=== PATIENT | female | born 1960 | race Native Hawaiian/Other Pacific Islander ===

== ENCOUNTER 2020-09-05 17:40 | Emergency (ER) | payer OTHER ==
[~2020-09-05] VITALS: Ht 172.7 cm; Wt 160.9 kg
[2020-09-05 17:49] VITALS: TEMP 98.1
[2020-09-05] MEDS ORDERED: NORCO 325 MG-51 TAB PO ×2 (18:45)
[2020-09-05 18:50] VITALS: BP 126/78; PULSE 80
== END 2020-09-05 18:55 | disposition home or self-care (01) ==
LOC: COL.ER 17:40
DX: M25.571 Pain in right ankle and joints of right foot (principal); M25.511 Pain in right shoulder; R74.8 Abnormal levels of other serum enzymes; R79.89 Other specified abnormal findings of blood chemistry; E66.9 Obesity, unspecified; W19.XXXA Unspecified fall, initial encounter

== ENCOUNTER → 2020-09-14 | Outpatient (REF) ==
[~2020-09-14] MED LIST: ASPIRIN 81M81 MG/TA2 PO; NORCO 325 MG-51 TAB PO
[2020-09-14 21:13] LABS: ALBUMIN 4.3 gm/dL (3.5-5.0); BILIRUBIN,TOTAL 0.6 mg/dL (0.0-1.0); CALCIUM 9.9 mg/dL (8.4-10.2); CREATININE, serum 0.63 (0.52-1.25); POTASSIUM 4.3 mmol/L (3.4-5.0); TOTAL PROTEIN 8.5 gm/dL (6.4-8.2)
== END ==
LOC: ZLAB.WCH 20:44
PROVIDERS: Physician Assistant
DX: Z01.89 Encounter for other specified special examinations (principal)

== ENCOUNTER 2020-09-26 17:01 | Emergency (ER) | payer OTHER ==
[~2020-09-26 17:01] MED LIST changes: -ASPIRIN 81M81 MG/TA2 PO
== END 2020-09-26 17:56 | disposition left against medical advice (07) ==
LOC: COL.ER 17:01
DX: R69 Illness, unspecified (principal)

== ENCOUNTER 2021-01-23 13:04 | Inpatient (IN) | payer BC ==
[~2021-01-23] VITALS: Ht 175.3 cm; Wt 162.0 kg
[2021-01-23 14:15] LABS: BASO % 0.1 % (0.0-2.0); GRAN # 5.9 K/mm3 (1.4-6.5); GRAN % 83.3 % (42.2-75.2); HEMOGLOBIN 14.9 g/dl (12.5-16.0); LYMPH # 0.6 K/mm3 (1.2-3.4); LYMPH % 8.8 % (20.0-51.0); MEAN CELL VOLUME 85 fl (80.0-100.0); MEAN CORPUSCULAR HEMOGLOBIN 28 pg (27.0-31.0); MEAN CORPUSCULAR HGB CONC 33 g/dl (33.0-37.0); MEAN PLATELET VOLUME 10.5 fl (7.4-10.4); MONO # 0.5 K/mm3 (0.1-0.6); MONO % 7.1 % (1.7-9.3); PLATELET COUNT 208 K/mm3 (130-400); RED BLOOD COUNT 5.31 M/mm3 (4.10-5.30); REDCELL DISTRIBUTION WIDTH-CV 12.6 % (11.5-14.5)
[2021-01-23 14:36] LABS: ALANINE AMINOTRANSFERASE 40 U/L (0-55); ALBUMIN 3.6 gm/dL (3.5-5.0); ALKALINE PHOSPHATASE 195 U/L (40-150); ANION GAP 15 mmol/L (7-16); AST,SGOT 63 U/L (5-34); BILIRUBIN,TOTAL 0.7 mg/dL (0.2-1.2); BLOOD UREA NITROGEN 24 mg/dL (10-20); CALCIUM 9.5 mg/dL (8.4-10.2); CARBON DIOXIDE 19 mmol/L (22-29); CHLORIDE 97 mmol/L (98-107); CREATININE, serum 1.39 mg/dL (0.57-1.11); GLUCOSE 302 mg/dL (70-99); POTASSIUM 4.4 mmol/L (3.5-4.5); SODIUM 131 mmol/L (136-145); TOTAL PROTEIN 9.1 gm/dL (6.2-8.1)
[2021-01-23 14:45] LABS: ARTERIAL BLD GAS O2 SATURATION 93.9 % (92-100); ARTERIAL BLD GAS TCO2 CT 21.2; ARTERIAL BLOOD GAS BASE EXCESS -3.6 (-2-2); ARTERIAL BLOOD GAS HCO3 20.2 meq/L (22-26); ARTERIAL BLOOD GAS PCO2 33.2 mmHg (35-45); ARTERIAL BLOOD GAS PO2 71.1 mmHg (80-100)
[2021-01-23 15:08] LABS: TROPONIN-I < 0.010 ng/mL (0.00-0.033)
[2021-01-23] MEDS ORDERED: ASPIRIN 81M81 MG/TA2 PO (17:47)
[2021-01-23 17:56] VITALS: BP 108/82; PULSE 78; TEMP 98.8
--- NOTE | 2021-01-23 19:22 | NUR ---
PT ADMITTED TO FLOOR, PT MED REC, ALLERGIES, AND PHARMACY CONFIRMED/COMPLETED. PT ASSESSMENT AND ORIENTATION COMPLETED TO BEST OF ABILITY. PT HAS DIMINISHED LUNG SOUNDS IN LOWER LOBES BILATERALLY. PT CLEAR UPPER LOBES. PT REPORTS PRODUCTIVE COUGH, PHLEGM GREEN/WHITE AND THICK. PT HAS BILATERAL LOWER EDEMA 1+. PT ALERT AND ORIENTED. PT STATES HAVING WEAKNESS AND SOA WITH EXERTION. REPORTED FEELING DIZZY WHEN ADMITTED TO ED. IV IN RIGHT AC TWISTED AND COMING OUT, PT REPORT PAIN AT INSERTION SITE. IV REMOVED AT THIS TIME.
[2021-01-23 20:01] VITALS: BP 131/52; PULSE 75; TEMP 97.9
[2021-01-24] VITALS (7 sets, daily range): BP systolic 91–110; BP diastolic 44–62; PULSE 67–91; TEMP 98.5–100.7
--- NOTE | 2021-01-24 01:34 | NUR ---
FEVER NOTED IN PT AT 0100, ROOM TEMPERATURE LOWERED, BLANKET TAKEN OFF PT. THIS NURSE WILL MONITOR.
--- NOTE | 2021-01-24 05:41 | NUR ---
PT HAD UNEVENTFUL NIGHT THIS SHIFT. 02 DEMANDS REMAIN THE SAME. PT AIRVO 50L FIO2 OF 75, N/S CONTINUES TO INFUSE TO LFA PERIPHERAL AT 75CC/HR. PT I&O NOTED AND RECORDED. ALL NEEDS MET THIS NIGHT.PT EXPRESSES NO ADDITIONAL NEEDS AT THIS TIME. CALL LIGHT WITHIN REACH.
[2021-01-24 06:50] LABS: GRAN # 3.4 K/mm3 (1.4-6.5); GRAN % 78.9 % (42.2-75.2); LYMPH # 0.6 K/mm3 (1.2-3.4); MEAN CELL VOLUME 86 fl (80.0-100.0); MEAN CORPUSCULAR HEMOGLOBIN 28 pg (27.0-31.0); MEAN CORPUSCULAR HGB CONC 32 g/dl (33.0-37.0); MEAN PLATELET VOLUME 10.6 fl (7.4-10.4); MONO # 0.3 K/mm3 (0.1-0.6); MONO % 6.9 % (1.7-9.3); PLATELET COUNT 161 K/mm3 (130-400); RED BLOOD COUNT 4.55 M/mm3 (4.10-5.30); REDCELL DISTRIBUTION WIDTH-CV 12.5 % (11.5-14.5)
[2021-01-24 07:15] LABS: HEMOGLOBIN 12.6 g/dl (12.5-16.0)
[2021-01-24 07:19] LABS: ALBUMIN 2.9 gm/dL (3.5-5.0); C-REACTIVE PROTEIN 4.63 mg/dL (0.00-0.50); CALCIUM 8.6 mg/dL (8.4-10.2); CREATININE, serum 1.17 mg/dL (0.57-1.11); MAGNESIUM 1.7 mg/dL (1.6-2.6); PHOSPHOROUS 3.5 mg/dL (2.3-4.7); POTASSIUM 4.3 mmol/L (3.5-4.5)
--- NOTE | 2021-01-24 08:00 | NUR ---
PT ALERT AND ORIENTED. PT VERY DYSPNIC WITH EXTERTION. PRODUCTIVE COUGH NOTED. PT HAS DIMINISHED LUNG SOUNDS IN ALL LOBES, SHALLOW BREATHING. PT EXPRESSES DIFFICULTY TAKING DEEP BREATH FOR ASSESSMENT. PT S1,S2 SOUNDS AUSCULTATED. PT HAS 2+ PULSES IN ALL EXTREMITIES. PT HAS BILATERAL EDEMA IN LOWER EXTREMITIES, 1+ PITTING. PT HAS CALL LIGHT WITHIN REACH, MEDICATIONS RUNNING.
--- NOTE | 2021-01-24 12:14 | NUR ---
WHEN FLUSHING IV, PT REPORTED PAIN WITH FLUSH. WILL ATTEMPT NEW IV SITE
--- NOTE | 2021-01-24 14:06 | NUR ---
DID NOT SEE BREAKFAST TRAY, UNABLE TO ASSESS FOOD INTAKE
--- NOTE | 2021-01-24 16:37 | NUR ---
The patient is COVID positive. SW attempted to contact the patient to discuss discharge plan. She did not answer. SW contacted the patient's , Yoni, to complete intake. Yoni is also currently hospitalized at our hospital. The patient lives in [place] with her . Yoni reports that the patient is independent with ADLs and does not have any DME. The patient's PCP is Dr. Sharon Brush and she receives her medications from [facility]. Yoni reports no difficulties obtaining her meds. The patient does not have a DPOA-HC. Yoni reports that the patient has one child: Jessie. Yoni reports that he does not have his phone on him and can not recall Jessie's phone number. Yoni reports that the plan is for the patient to return back home with him upon discharge. The patient is currently requiring 50 liters of oxygen, via airvo. SW to continue to monitor. *Discharge plan: home with *
--- NOTE | 2021-01-24 18:59 | NUR ---
PT CONTINUING ON PLAN OF CARE. PT BLOOD SUGARS MANAGED WITH INSULIN PER ORDERS. PT CONTINUES ON AIRVO. PT REQUIRES EDUCATION ON MEDICATIONS, TREATMENT, THE USE OF AIRVO. PT EXPRESSED SOME ANXIETY WITH IVS AND AIRVO MACHINE. EDUCATION PROVIDED TO BEST OF ABILITY. PT ABLE TO CALL FOR NEEDS. MILD AND INTERMITTENT CONFUSION NOTED WITH PATIENT, WILL PASS ON TO COMMERCIAL COLLECTOR. PT HAD LOW GRADE TEMPERATURE THIS SHIFT. INFECTIOUS DISEASE PROVIDER NOTIFIED.
--- NOTE | 2021-01-25 00:35 | NUR ---
PT TEMPERATURE NOTED AT 100.7 AT 2000 VITALS, ROOM TEMPERATURE DROPPED, BLANKETS TAKEN OFF, ON F/U TEMPERATURE AT 103.1, MEDICATION ORDERED AND ADMINISTERED. ON RECHECK PT TEMPERATURE AT 99.1. PT STATES SHE FEELS MUCH BETTER AND HAS ALSO FOUND ALLEVIAITON FOR HER BODY ACHES. PT HYDRATING WELL.
[2021-01-25 03:13] VITALS: BP 121/75; PULSE 82; TEMP 102.4
--- NOTE | 2021-01-25 05:46 | NUR ---
PT 02 NEEDS INCREASED THIS SHIFT. PT WENT FROM 50L FIO2 OF 96 TO 60L FIO2 85. PT REQUIRES CONSTANT TEACHINGS, PT REMAINS ON BACK REGARDLESS OF PT TEACHINGS TO PRONE OR STAY ERECT.PT ALSO FOUND TO HAVE TAKEN 02 OFF DURING HOURLY ROUNDS. THIS NURSE REPEATEDLY EXPLAINED THE IMPORTANCE OF COMPLIANCE. PT VERBALIZES UNDERSTANDING. PT ENCOURAGED TO STAY ACTIVE AND TO CONTINUE TO HYDRATE ORALLY. N/S INFUSING AT 75CC/HR TO LH IV. MEDICATIONS ADMINISTERED ORDERED. PT HAD EPISODES OF ELEVATED TEMPERTURE OVER NIGHT. MEDICATION ADMINISTERED ORDER. COOL RAGS PROVIDED, TEMPERATURE IN ROOM DROPPED. INTERVENTIONS EFFECTIVE. PT EXPRESSES NO ADDITONAL NEEDS THIS MORNING. CALL LIGHT WITHIN REACH.
[2021-01-25 07:45] LABS: BASO % 0.2 % (0.0-2.0); GRAN # 5.1 K/mm3 (1.4-6.5); GRAN % 80.9 % (42.2-75.2); HEMATOCRIT 38.7 % (37.0-47.0); HEMOGLOBIN 12.5 g/dl (12.5-16.0); LYMPH # 0.8 K/mm3 (1.2-3.4); LYMPH % 12.9 % (20.0-51.0); MEAN CELL VOLUME 86 fl (80.0-100.0); MEAN CORPUSCULAR HEMOGLOBIN 28 pg (27.0-31.0); MEAN CORPUSCULAR HGB CONC 32 g/dl (33.0-37.0); MEAN PLATELET VOLUME 10.3 fl (7.4-10.4); MONO # 0.4 K/mm3 (0.1-0.6); MONO % 5.5 % (1.7-9.3); PLATELET COUNT 177 K/mm3 (130-400); REDCELL DISTRIBUTION WIDTH-CV 12.5 % (11.5-14.5)
[2021-01-25 08:02] LABS: ALBUMIN 2.8 gm/dL (3.5-5.0); BILIRUBIN,TOTAL 0.5 mg/dL (0.2-1.2); C-REACTIVE PROTEIN 4.14 mg/dL (0.00-0.50); CALCIUM 8.1 mg/dL (8.4-10.2); CREATININE, serum 1.07 mg/dL (0.57-1.11); POTASSIUM 3.9 mmol/L (3.5-4.5)
[2021-01-25 08:30] VITALS: BP 108/39; PULSE 86; TEMP 101.1
[2021-01-25 12:30] VITALS: BP 110/50; PULSE 75; TEMP 98.8
--- NOTE | 2021-01-25 15:37 | NUR ---
PT REQUIRING FREQUENT ENCOURAGEMENT TO KEEP AIRVO ON. PT DESATURATES WITH MOVEMENT, BEDSIDE COMMODE BROUGHT TO ROOM. PT O2 NEEDS INCREASING THIS AFTERNOON, MID 80'S% WHEN MAXED OUT ON AIRVO. PT PLACED ON BIPAP, DID NOT TOLERATE WELL, ATIVAN ADMINISTERED. PT'S RESPIRATIONS AT 40 A MIN. HOUSE AND PROVIDER NOTIFIED, PT TO BE TRANSFERRED TO ICU FOR CLOSER MONITORING PT CONTINUES TO TAKE BIPAP OFF.
[2021-01-25 16:07] VITALS: BP 112/57; PULSE 70; TEMP 98.5
--- NOTE | 2021-01-25 17:05 | NUR ---
RECEIVED REPORT FROM SKYLAR MERCADO. AWAITING ARRIVAL TO ICU 6.
--- NOTE | 2021-01-25 17:39 | NUR ---
PT ARRIVES TO ICU 6 VIA BED AND TRANSFERS SELF TO ICU BED. PT IS A LITTLE WOBBLY BUT ABLE TO CATCH SELF. PT ON BIPAP AT 95%. PLACED ON BEDSIDE CONTINUOUS MONITOR. CALL LIGHT PLACED WITHIN REACH. PT DENIES WANTING TO BE INTUBATED OR RESUSCITATED IF HEART STOPS. DR ESCOBEDO CALLED AND STATES HE IS AWARE OF PT'S WISHES AND WILL CHANGE CODE STATUS ORDER.
[2021-01-25 17:54] VITALS: BP 108/52; PULSE 68; TEMP 99.4
--- NOTE | 2021-01-25 17:55 | NUR ---
PT TRANSFERED TO ICU BED 6 . REPORT GIVEN TO EPI CHENG.
[2021-01-25 20:00] VITALS: BP 101/59; PULSE 72; TEMP 99.3
--- NOTE | 2021-01-25 20:00 | NUR ---
PATIENT CONTINUES TO DECLINE SILVA CATHETER PLACEMENT OFFERED TO TRY PURWICK AND EDUCATED ON NEED FOR HER TO CONVERSE HER RESPIRATORY STATUS TO HELP HER HEAL PATIENT IN AGREEMENT FOR PURWICK, PLACED AND DRY ELDA PAD PLACED FOR ANY ACCIDENTAL LEAKAGE
[2021-01-26] VITALS: BP 128/64; PULSE 64; TEMP 98
--- NOTE | 2021-01-26 00:30 | NUR ---
PATIENT ABLE TO VOID 700 ML OF CLEAR YELLOW URINE VIA PURWICK
[2021-01-26 04:00] VITALS: BP 106/58; PULSE 51; TEMP 97.8
[2021-01-26 05:40] LABS: GRAN # 2.5 K/mm3 (1.4-6.5); GRAN % 69.1 % (42.2-75.2); HEMATOCRIT 39.5 % (37.0-47.0); HEMOGLOBIN 12.8 g/dl (12.5-16.0); LYMPH # 0.7 K/mm3 (1.2-3.4); LYMPH % 20.1 % (20.0-51.0); MEAN CELL VOLUME 85 fl (80.0-100.0); MEAN CORPUSCULAR HEMOGLOBIN 28 pg (27.0-31.0); MEAN CORPUSCULAR HGB CONC 32 g/dl (33.0-37.0); MEAN PLATELET VOLUME 10.1 fl (7.4-10.4); MONO # 0.4 K/mm3 (0.1-0.6); MONO % 10.2 % (1.7-9.3); PLATELET COUNT 186 K/mm3 (130-400); RED BLOOD COUNT 4.65 M/mm3 (4.10-5.30); REDCELL DISTRIBUTION WIDTH-CV 12.4 % (11.5-14.5)
[2021-01-26 05:59] LABS: ALBUMIN 2.8 gm/dL (3.5-5.0); BILIRUBIN,TOTAL 0.4 mg/dL (0.2-1.2); C-REACTIVE PROTEIN 5.58 mg/dL (0.00-0.50); CALCIUM 8.5 mg/dL (8.4-10.2); CREATININE, serum 0.97 mg/dL (0.57-1.11); PHOSPHOROUS 3.8 mg/dL (2.3-4.7); TOTAL PROTEIN 7.2 gm/dL (6.2-8.1)
--- NOTE | 2021-01-26 07:00 | NUR ---
RECEIVED REPORT FROM SKYLAR MANTILLA. PT RESTING IN BED ON BIPAP AT 95% FIO2. VSS. CALL LIGHT WITHIN REACH. PUREWICK IN PLACE.
[2021-01-26 08:00] VITALS: BP 117/57; PULSE 52; TEMP 98.4
[2021-01-26 12:00] VITALS: BP 115/61; PULSE 62; TEMP 98.8
[2021-01-26 16:00] VITALS: BP 130/57; PULSE 68; TEMP 98.5
[2021-01-26 20:00] VITALS: BP 113/74; PULSE 58; TEMP 98.6
[2021-01-27] VITALS (257 sets, daily range): BP systolic 96–139; BP diastolic 56–76; PULSE 48–73; TEMP 96.3–98.6; O2SAT 60–98
[2021-01-27 05:14] LABS: GRAN # 4.2 K/mm3 (1.4-6.5); GRAN % 75.9 % (42.2-75.2); HEMATOCRIT 39.5 % (37.0-47.0); HEMOGLOBIN 12.7 g/dl (12.5-16.0); LYMPH # 0.8 K/mm3 (1.2-3.4); MEAN CELL VOLUME 87 fl (80.0-100.0); MEAN CORPUSCULAR HEMOGLOBIN 28 pg (27.0-31.0); MEAN CORPUSCULAR HGB CONC 32 g/dl (33.0-37.0); MEAN PLATELET VOLUME 10.1 fl (7.4-10.4); MONO # 0.5 K/mm3 (0.1-0.6); MONO % 8.7 % (1.7-9.3); PLATELET COUNT 214 K/mm3 (130-400); RED BLOOD COUNT 4.54 M/mm3 (4.10-5.30); REDCELL DISTRIBUTION WIDTH-CV 12.2 % (11.5-14.5)
[2021-01-27 05:31] LABS: ALBUMIN 2.6 gm/dL (3.5-5.0); BILIRUBIN,TOTAL 0.4 mg/dL (0.2-1.2); C-REACTIVE PROTEIN 2.18 mg/dL (0.00-0.50); CALCIUM 8.9 mg/dL (8.4-10.2); CREATININE, serum 0.87 mg/dL (0.57-1.11); POTASSIUM 4.3 mmol/L (3.5-4.5); TOTAL PROTEIN 6.8 gm/dL (6.2-8.1)
--- NOTE | 2021-01-27 07:30 | NUR ---
Pt placed on AirVo for meds and meals. Discussed at length with pt: oxygenation with BiPAP vs comfort and slight hypoxia with AirVo - pt wishes to stay on AirVo - extensive education provided about potential hypoxia/hypercapnia symptoms - pt states understanding. MD Margaux and MD Satya notfied and ok with pt's decision.
--- NOTE | 2021-01-27 10:38 | NUR ---
Pt agreeable to BiPAP if respiratory therapy can troubleshoot large amount of leakage that was causing eye pain and insomnia due to annoyance from loud leak noise ShannonRT notified.
--- NOTE | 2021-01-27 19:30 | NUR ---
CALLED REPORT TO SKYLAR MORALEZ ON MEDICAL FLOOR TO TRANSFER PT. WILL BRING MEDICAL BED DOWN FOR TRANSFER WHEN AVAILABLE.
--- NOTE | 2021-01-27 21:00 | NUR ---
PT ARRIVED TO MEDICAL FLOOR TO ROOM 302 BY RESPIRATORY STAFF AND ICU STAFF VIA BED. PT A/OX4, BIPAP 18/12 FI02 100%, PUREWICK IN PLACE, YAUNKER SUCTION IN PLACE. PT MISSING GREEN BRACELET BUT HAS OTHER BELONGINGS. PT HAS MEDICATIONS IN HER BAG. THIS NURSE REVIEWED WITH PT TO NOT TAKE MEDICATIONS, TO ONLY STORE THEM IN ROOM. THIS NURSE COMPLETED MED REC AND CONDUCTED ASSESMENT. ALL QUESTIONS/CONCERNS ANSWERED. ALL NEEDS MET AT THIS TIME. CALL LIGHT WITHIN REACH.
[2021-01-28 04:01] VITALS: BP 93/49; PULSE 59; TEMP 97.3
--- NOTE | 2021-01-28 05:25 | NUR ---
PT REMAINS ON BIPAP, 17/02, FIO2 OF 100 WITH SATURATIONS 90-94 PERCENT. PT NOT TOLERATING BIPAP TOO WELL, PT CONTINUES TO PULL MASK OFF INTERMITTENTLY, PT PROVIDED TEACHING BY THIS NURSE AND RT STAFF CONCERNING IMPORTANCE. PT VERBALIZES UNDERSTANDING. PT INCONTINENT OF BOWEL, THIS NURSE WAS ABLE TO AIDE PT WITH SHOWER, BED LINENS CHANGED. ALL QUESTIONS/CONCERNS ANSWERED THIS NIGHT. PT EXPRESSES NO ADDITIONAL NEEDS AT THIS TIME. CALL LIGHT WITHIN REACH.
[2021-01-28 06:51] LABS: BASO % 0.1 % (0.0-2.0); GRAN # 6.3 K/mm3 (1.4-6.5); HEMOGLOBIN 13.8 g/dl (12.5-16.0); LYMPH # 0.8 K/mm3 (1.2-3.4); LYMPH % 10.4 % (20.0-51.0); MEAN CELL VOLUME 83 fl (80.0-100.0); MEAN CORPUSCULAR HEMOGLOBIN 28 pg (27.0-31.0); MEAN CORPUSCULAR HGB CONC 34 g/dl (33.0-37.0); MEAN PLATELET VOLUME 10.2 fl (7.4-10.4); MONO # 0.6 K/mm3 (0.1-0.6); MONO % 7.7 % (1.7-9.3); PLATELET COUNT 265 K/mm3 (130-400); RED BLOOD COUNT 4.96 M/mm3 (4.10-5.30); REDCELL DISTRIBUTION WIDTH-CV 12.2 % (11.5-14.5)
[2021-01-28 07:13] LABS: ALBUMIN 2.8 gm/dL (3.5-5.0); BILIRUBIN,TOTAL 0.5 mg/dL (0.2-1.2); CALCIUM 9.8 mg/dL (8.4-10.2); CREATININE, serum 0.95 mg/dL (0.57-1.11); POTASSIUM 3.9 mmol/L (3.5-4.5); TOTAL PROTEIN 6.9 gm/dL (6.2-8.1)
[2021-01-28 08:43] VITALS: BP 119/61; PULSE 66; TEMP 98.1
--- NOTE | 2021-01-28 10:57 | NUR ---
PT RESTING IN BED. MORNING MEDICATIONS GIVEN. SHIFT ASSESSMENT COMPLETED. ATTEMPTED TO PUT PT ON AIRVO FOR BREAKFAST BUT O2 SATURATIONS DROPPED DOWN TO 79%. PLACED PT BACK ON BIPAP, PT TOLERATING WELL FOR NOW. WILL CONTINUE TO MONITOR.
--- NOTE | 2021-01-28 11:01 | NUR ---
PT RESTING IN BED. MORNING MEDICATIONS GIVEN. SHIFT ASSESSMENT COMPLETED. ATTEMPTED TO PLACE PT ON AIRVO FOR BREAKFAST, O2 SATURATION QUICKLY DROPPED DOWN TO 79%. PLACED PT BACK ON BIPAP, TOLERATING WELL FOR NOW. DENIES ANY PAIN OR NEEDS. WILL CONTINUE TO MONITOR.
[2021-01-28 12:18] VITALS: BP 111/56; PULSE 56; TEMP 98.6
[2021-01-28 16:00] VITALS: BP 121/48; PULSE 57; TEMP 98.3
[2021-01-28 19:21] VITALS: BP 109/55; PULSE 66; TEMP 98
[2021-01-29 00:35] VITALS: BP 127/51; PULSE 62; TEMP 97.5
--- NOTE | 2021-01-29 04:58 | NUR ---
PT HAD UNEVENTFUL NIGHT THIS SHIFT. PT TOLERATED BIPAP WELL, 02 SATURATIONS RANGING FROM 90-95 PERCENT. PT PUREWICK DC'D IT IS INEFFECTIVE. PT ENCOURAGED TO AMBULATE TO BEDSIDE COMMODE. MEDICATIONS ADMINISTERED ORDERED. PT EXPRESSES NO ADDITIONAL NEEDS AT THIS TIME. CALL LIGHT WITHIN REACH.
[2021-01-29 05:37] VITALS: BP 122/46; PULSE 68; TEMP 98.7
[2021-01-29 06:45] LABS: BASO % 0.1 % (0.0-2.0); EOS % 0.3 % (0-4.0); GRAN # 6.1 K/mm3 (1.4-6.5); GRAN % 77.8 % (42.2-75.2); HEMATOCRIT 40.3 % (37.0-47.0); HEMOGLOBIN 13.1 g/dl (12.5-16.0); LYMPH # 1.2 K/mm3 (1.2-3.4); LYMPH % 15.8 % (20.0-51.0); MEAN CELL VOLUME 86 fl (80.0-100.0); MEAN CORPUSCULAR HEMOGLOBIN 28 pg (27.0-31.0); MEAN CORPUSCULAR HGB CONC 33 g/dl (33.0-37.0); MEAN PLATELET VOLUME 10.4 fl (7.4-10.4); MONO # 0.4 K/mm3 (0.1-0.6); MONO % 5.4 % (1.7-9.3); PLATELET COUNT 254 K/mm3 (130-400); REDCELL DISTRIBUTION WIDTH-CV 12.2 % (11.5-14.5)
[2021-01-29 07:14] LABS: ALBUMIN 2.7 gm/dL (3.5-5.0); C-REACTIVE PROTEIN 0.5 mg/dL (0.00-0.50); CALCIUM 8.8 mg/dL (8.4-10.2); CREATININE, serum 1.42 mg/dL (0.57-1.11); MAGNESIUM 1.5 mg/dL (1.6-2.6); PHOSPHOROUS 3.8 mg/dL (2.3-4.7); POTASSIUM 3.7 mmol/L (3.5-4.5)
[2021-01-29 08:43] VITALS: BP 118/56; PULSE 62; TEMP 97.4
[2021-01-29 12:23] VITALS: BP 117/53; PULSE 74; TEMP 98.3
--- NOTE | 2021-01-29 12:28 | NUR ---
PT RESTING IN BED. MEDICATIONS GIVEN PER MAY. SHIFT ASSESSMENT COMPLETED. PT DENIES ANY PAIN. ON BIPAP WITH O2 SATURATIONS 85-90%. NEW IV SITE STARTED TO R HAND. WILL CONTINUE TO MONITOR.
[2021-01-29 15:46] VITALS: BP 116/58; PULSE 64; TEMP 98.5
[2021-01-29 20:11] VITALS: BP 128/47; PULSE 72; TEMP 97.3
--- NOTE | 2021-01-29 22:08 | NUR ---
PT IN ROOM SITTING UP HOB AT 35 DEGREES, PT A/OX4, BIPAP ON; 02 SATURATIONS OVER 93 PERCENT. PT SUCTION CONNECTION CHANGED, PT PROVIDED NEW SCD'S OLD ONES WERE SOILED. NS INFUSING AT 75CC/HR TO LEONARD PICC. PICC C&P. THIS NURSE REVIEWED UA SAMPLE NEED, PT REFUSES TO BE STRAIGHT CATHED, THIS NURSE REVIEWED ASEPTIC TECHNIQUE FOR COLLECTION WITH PT. PT VERBALIZES UNDERSTANDING. PT CLEANED AND CHANGED BY THIS NURSE. THIS NURSE WILL CONTINUE TO MONITOR PT.
[2021-01-30] VITALS (130 sets, daily range): BP systolic 88–170; BP diastolic 47–87; PULSE 52–97; TEMP 97.9–99; O2SAT 81–97
--- NOTE | 2021-01-30 01:03 | NUR ---
AT ABOUT 0015 THIS NURSE ENTERS PT ROOM TO HELP PT OFF BEDSIDE COMMODE AND INTO BED, POST AMBULATION PT 02 DESATTED TO 56 PERCENT. PT WAS VERY ANXIOUS STATING SHE COULD NOT BREATHE. BIPAP SETTING ARE CURRENTLY 18/12 FIO2 OF 100. PT INSTRUCTED TO STOP SUCTIONING UNTIL HER 02 RAISES, KEEP MASK ON AND STOP CONSTANTLY READJUSTING. THIS NURSE AND RT WERE ABLE TO GET HER 02 SATS BACK UP TO 91. THIS NURSE STAYED WITH PT FOR APPROXIMATELY 50 MINUTES TO ENSURE PT WAS CALM BACK IN BED. PULSE OXIMETER IS CURRENTLY CONTINOUS AND VISIBLE TO THE ENTRY DOOR. PT INSTRUCTED TO CALL NURSE IF IT FALLS BELOW 90. THIS NURSE REVIEWED SILVA CATHETER PURPSE WITH THE PT AND DISCUSSED BENEFITS/RISKS. PT REFUSED. THIS NURSE WILL CONTINUE TO MONITOR PT.
--- NOTE | 2021-01-30 06:06 | NUR ---
PT CONTINUES ON BIPAP THIS MORNING WITH 02 SATURATIONS 90-93 PERCENT. PT URINE COLLECTED. I&O NOTED AND RECORDED. PT BED LINENS CHANGED WELL GOWN. PT ABLE TO AMBULATE TO BEDSIDE COMMODE WITH STABNDBY ASSISTANCE. PULSE OXIMETYRY ON CONTINUOUS READINGS.N/S CONTINUES TO INFUSE AT 755CC/HR TO [facility] PICC. PICC C&D. THIS NURSE INFORMED PT TO REPORT ANYTHING LESS THAN 90. PT VERBALIZES UNDERSTANDING. PT VERY ADAMANT OF NOT WANTING TO BE STRAIGHT CATHED OR SILVA IN. THIS NURSE WILL ENSURE TO RELAY. ALL NEEDS MET THIS NIGHT. CALL LIGHT WITHIN REACH.
[2021-01-30 06:43] LABS: BASO % 0.1 % (0.0-2.0); EOS # 0.1 K/mm3 (0.0-0.7); EOS % 1.4 % (0-4.0); GRAN # 7.7 K/mm3 (1.4-6.5); GRAN % 83.8 % (42.2-75.2); HEMATOCRIT 41.6 % (37.0-47.0); HEMOGLOBIN 13.3 g/dl (12.5-16.0); LYMPH # 0.9 K/mm3 (1.2-3.4); MEAN CELL VOLUME 86 fl (80.0-100.0); MEAN CORPUSCULAR HEMOGLOBIN 27 pg (27.0-31.0); MEAN CORPUSCULAR HGB CONC 32 g/dl (33.0-37.0); MONO # 0.3 K/mm3 (0.1-0.6); MONO % 3.7 % (1.7-9.3); PLATELET COUNT 276 K/mm3 (130-400); RED BLOOD COUNT 4.86 M/mm3 (4.10-5.30); REDCELL DISTRIBUTION WIDTH-CV 12.3 % (11.5-14.5)
[2021-01-30 07:04] LABS: MUCOUS Present (NOT PRESENT); PH 5 (5-8); SQUAMOUS EPITHELIAL 0-2 /hpf (0-10); URINE APPEARANCE Clear (CLEAR/HAZY); URINE BACTERIA None Seen (NONE SEEN); URINE BILIRUBIN Negative (NEGATIVE); URINE BLOOD Negative (NEGATIVE); URINE COLOR Yellow (YELLOW); URINE GLUCOSE Negative (NEGATIVE); URINE KETONE Negative (NEGATIVE); URINE LEUKOCYTE ESTERASE Trace (NEGATIVE); URINE NITRATE Negative (NEGATIVE); URINE PROTEIN(semi-quant) Negative (NEGATIVE); URINE RBC 0-2 /hpf (0-2); URINE UROBILINOGEN Negative (NEGATIVE)
[2021-01-30 07:13] LABS: ALBUMIN 2.8 gm/dL (3.5-5.0); C-REACTIVE PROTEIN 0.39 mg/dL (0.00-0.50); CALCIUM 8.9 mg/dL (8.4-10.2); CREATININE, serum 0.82 mg/dL (0.57-1.11); MAGNESIUM 1.9 mg/dL (1.6-2.6); POTASSIUM 3.8 mmol/L (3.5-4.5)
[2021-01-30 08:25] LABS: COLLECTION METHOD CATHETER
--- NOTE | 2021-01-30 09:33 | NUR ---
PT RESTING IN BED. MORNING MEDICATIONS GIVEN. SHIFT ASSESSMENT COMPLETED. PT ON BIPAP AT THIS TIME. DOESN'T HAVE MUCH OF AN APPETITE. IS DROWSY. DENIES ANY NEEDS. WILL CONTINUE TO MONITOR.
--- NOTE | 2021-01-30 10:40 | NUR ---
The patient remains on the bipap. SW attempted to contact the patient's , Yoni, to follow up. SW left him a voicemail.
[2021-01-30 13:37] LABS: ARTERIAL BLD GAS O2 SATURATION 89.9 % (92-100); ARTERIAL BLD GAS TCO2 CT 22.8; ARTERIAL BLOOD GAS BASE EXCESS -2.9 (-2-2); ARTERIAL BLOOD GAS HCO3 21.7 meq/L (22-26); ARTERIAL BLOOD GAS PCO2 37.1 mmHg (35-45); ARTERIAL BLOOD GAS PO2 58.8 mmHg (80-100); ARTERIAL BLOOD GAS pH 7.38 (7.35-7.45)
--- NOTE | 2021-01-30 18:50 | NUR ---
Day shift charge attendant, notified of patient O2 sats in the 60s and being prepped for intubation. This RN went to medical floor to patients room to assist in intubation. Stacy, medical RN, KAREEN Pelletier, RT Eliot, and Babak Roman CRNA at bedside at 1900 to begin to prep for intubation. Patient put on transport monitor to watch continuous vitals. Patient satting at 70% on 100% fio2 on the bipap with respirations in the 40s. Patient agreeable to intubation. This RN witnessed verbal consent from patient. Patient unable to sign consent form. This RN and PA signed consent form & attached to chart. At 1915, 2mg of versed was pushed IV in LEONARD PICC followed by 20mg propofol in LEONARD PICC. 2% Lidocaine given at 1916. ETT inserted at 1918. CO2 color change detected and bilateral breath sounds heard at 1919. At 1919 patient was hooked up to ventilator. ETT at 22 at the teeth. PEELED POTATO INSPECTOR left bedside at 1921. Patient began to become restless and attempt to pull at ETT, propofol gtt initiated at 20mcg/kg/min at 1934. Patient BP began to drop to 70/30s. Patient received 1L NS bolus. OG placed at 57cm at 1938. This RN notified warehouse receiving clerk to bring up fentanyl for gtt per hospitalist order. Patient continued to have tachypnea with belly breathing noted. Propofol titrated and maxxed at 42.3mls/hr per hospitalist at bedside. 10mg of vec pushed IV at 1944 per hospitalist order. CXray completed at 1948. OG placement verified by auscultation at 1952. Patient brought down to ICU via medical bed at 1954, accompanied by RT Eliot, Stacy, RN, this RN and KAREEN Pelletier. Patient arrive to ICU unit room 8 at 2005. Patient BP WNL after 1L bolus but began to drop again after arrival to ICU unit. Received order for levophed which was initiated at 2051. Titrated up per protocol. Patient sats sitting in the low 80s with heavy belly breathing noted. Received order for Q2hr 5mg IV vec pushes. This RN notified PA that vec pushes were not lasting very long and patient sats would begin to drop and patient wasn't tolerating ventilator and continues to belly breathe. Hospitalist spoke with BlancaU and this RN received order for vec gtt. Vec gtt started at 6.8mls/hr at 2345.
--- NOTE | 2021-01-30 20:35 | NUR ---
AT SHIFT CHANGE THIS NURSE ENTERED ROOM WHERE HOSPITALIST WAS ALSO ATTENDING PT. PT WAS HYPOXIC WITH BIPAP 18/16 100 FIO2 WITH A SATURATION IN THE LOW 70'S. PT RR LABORED AND RANGINGS IN THE 30'S PER MIN. BP STABLE. SILVA IN PLACE. D5 1/2 NS RUNNING TO PICC LINE. ANESTHESIOLOGY WAS CONSULTED AND ARRIVED TO ROOM AT ABOUT 1900. THIS NURSE WAS IN THE ROOM WITH ICU TEAM ASSISTING WITH INTUBATION UNTIL PT TRANSPORTED TO ICU BED AT APPROXIMATELY 2030. REPORT COMPLETED. PT BELONGINGS WITH PT. THIS NURSE WILL CONTACT AND UPDATE PT STATUS. ALL NECESSARY CARE PROVIDED AND COMPLETED.
[2021-01-30 21:12] LABS: ARTERIAL BLD GAS TCO2 CT 22.2; ARTERIAL BLOOD GAS BASE EXCESS -4.7 (-2-2); ARTERIAL BLOOD GAS HCO3 20.9 meq/L (22-26); ARTERIAL BLOOD GAS PCO2 40.8 mmHg (35-45); ARTERIAL BLOOD GAS PO2 69.2 mmHg (80-100); ARTERIAL BLOOD GAS pH 7.33 (7.35-7.45)
[2021-01-31] VITALS (656 sets, daily range): BP systolic 116–158; BP diastolic 58–82; PULSE 48–67; TEMP 97.9–99.2; O2SAT 84–98
--- NOTE | 2021-01-31 01:00 | NUR ---
This RN sent a large ziploc bag of medicine with transfer and pumphouse operator chief to pharmacy. Patient has a purse with coupons, cellphone, deodorant and nail file bag inside of purse at patient bedside.
[2021-01-31 04:01] LABS: ARTERIAL BLD GAS O2 SATURATION 95.6 % (92-100); ARTERIAL BLD GAS TCO2 CT 21.5; ARTERIAL BLOOD GAS BASE EXCESS -5.6 (-2-2); ARTERIAL BLOOD GAS HCO3 20.2 meq/L (22-26); ARTERIAL BLOOD GAS PCO2 40.7 mmHg (35-45); ARTERIAL BLOOD GAS PO2 88.7 mmHg (80-100); ARTERIAL BLOOD GAS pH 7.31 (7.35-7.45)
--- NOTE | 2021-01-31 06:04 | NUR ---
Sedation vacation not completed d/t patient being intubated less than 24 hours.
--- NOTE | 2021-01-31 06:05 | NUR ---
Patient has purse with nail filing packet, iphone, deodorant and coupons inside at patient bedside. Patient had large ziplock bag of home medicine that was sent to pharmacy with mixing house operator.
[2021-01-31 06:09] LABS: ALBUMIN 2.9 gm/dL (3.5-5.0); C-REACTIVE PROTEIN 0.34 mg/dL (0.00-0.50); CALCIUM 9.2 mg/dL (8.4-10.2); CREATININE, serum 1.43 mg/dL (0.57-1.11); MAGNESIUM 1.7 mg/dL (1.6-2.6); PHOSPHOROUS 4.4 mg/dL (2.3-4.7); POTASSIUM 4.7 mmol/L (3.5-4.5)
[2021-01-31 06:12] LABS: HEMATOCRIT 45.7 % (37.0-47.0); HEMOGLOBIN 14.4 g/dl (12.5-16.0); MEAN CELL VOLUME 87 fl (80.0-100.0); MEAN CORPUSCULAR HEMOGLOBIN 28 pg (27.0-31.0); MEAN CORPUSCULAR HGB CONC 32 g/dl (33.0-37.0); MEAN PLATELET VOLUME 9.9 fl (7.4-10.4); PLATELET COUNT 357 K/mm3 (130-400); RED BLOOD COUNT 5.24 M/mm3 (4.10-5.30); REDCELL DISTRIBUTION WIDTH-CV 12.6 % (11.5-14.5)
[2021-01-31 06:55] LABS: BAND 16 % (0-10); LYMPHOCYTE 2 % (20.0-51.0); METAMYELOCYTE 1 % (0-0); NEUTROPHILS 80 % (42.0-75.2); PLATELET ESTIMATE NORMAL (NORMAL)
--- NOTE | 2021-01-31 08:00 | NUR ---
ASSUMED CARE OF PT. CHECKED ETT, OG, VENT SETTINGS, AND DRIPS COMFIRMED. PATIENT IS HEAVILY SEDATED AT THIS TIME AND DOES NOT RESPOND TO VOICE, TOUCH OR PAIN. PT IS AFEBRILE.
[2021-01-31 11:14] LABS: ARTERIAL BLD GAS O2 SATURATION 93.6 % (92-100); ARTERIAL BLD GAS TCO2 CT 18.7; ARTERIAL BLOOD GAS BASE EXCESS -7.7 (-2-2); ARTERIAL BLOOD GAS HCO3 17.6 meq/L (22-26); ARTERIAL BLOOD GAS PCO2 35.8 mmHg (35-45); ARTERIAL BLOOD GAS PO2 74.1 mmHg (80-100); ARTERIAL BLOOD GAS pH 7.31 (7.35-7.45)
--- NOTE | 2021-01-31 14:02 | NUR ---
PATIENTS BROTHER CAME TO THE ED WAITING ROOM FOR SOME INFORMATION. THIS NURSE WENT OUT AT GAVE AN UPDATE ON THE PT STATUS AND GOALS FOR TODAY. THE PTS FAMILY MEMEBERS WERE ALSO TOLD THAT THEY CANNOT WAIT OUT IN THE ED WAITING ROOM, AND THAT IT IS OK THAT THEY WAIT IN THEIR CAR ON THE PROPERTY. THE FAMILY MEMEBER STATED THAT IN THEIR CULTURE THEY WILL ALWAYS HAVE SOMEONE NEAR.
--- NOTE | 2021-01-31 15:24 | NUR ---
wet room worker left patient's spouse a message to call as he has been ill and we want to make sure that he is doing fine. Worker spoke with patient's brother, Jourdan, and confirmed that he saw spouse this morning and that he is making sure that patient's son is checking on his father. Worker collaborated with patient's nurse and advised of the above information.
--- NOTE | 2021-01-31 16:25 | NUR ---
Started tube feed per protocol.
--- NOTE | 2021-01-31 16:30 | NUR ---
PER DR. MAY, TITRATING DOWN ON PTS FENTANYL.
--- NOTE | 2021-01-31 16:56 | NUR ---
At this time, the pts vecuronium is on standby, TOF 0/4.
--- NOTE | 2021-01-31 17:41 | NUR ---
PATIENT TOF 0/4, WILL BE CAUTIOUS OF LOWERING SEDATION.
[2021-01-31 21:02] LABS: MAGNESIUM 2.6 mg/dL (1.6-2.6); PHOSPHOROUS 3.3 mg/dL (2.3-4.7); POTASSIUM 3.7 mmol/L (3.5-4.5)
[2021-02-01] VITALS (645 sets, daily range): BP systolic 98–156; BP diastolic 48–75; PULSE 52–72; TEMP 97.3–98.2; O2SAT 72–100
--- NOTE | 2021-02-01 04:30 | NUR ---
PATIENT BLOOD SUGAR CHECKED PER ORDERS NOTED TO BE 79 AT O415 GIVEN D50 PER ORDERS AND RECHECK AT 0430 BLOOD SUGAR WAS 180, RESTARTED INSULIN DRIP PER ORDERS AT 9 UNITS/HR
[2021-02-01 04:43] LABS: ARTERIAL BLD GAS O2 SATURATION 90.5 % (92-100); ARTERIAL BLD GAS TCO2 CT 18.5; ARTERIAL BLOOD GAS BASE EXCESS -7.8 (-2-2); ARTERIAL BLOOD GAS HCO3 17.4 meq/L (22-26); ARTERIAL BLOOD GAS PCO2 35.2 mmHg (35-45); ARTERIAL BLOOD GAS PO2 66.4 mmHg (80-100); ARTERIAL BLOOD GAS pH 7.31 (7.35-7.45)
[2021-02-01 05:25] LABS: HEMATOCRIT 44.1 % (37.0-47.0); HEMOGLOBIN 14.2 g/dl (12.5-16.0); MEAN CELL VOLUME 86 fl (80.0-100.0); MEAN CORPUSCULAR HEMOGLOBIN 28 pg (27.0-31.0); MEAN CORPUSCULAR HGB CONC 32 g/dl (33.0-37.0); PLATELET COUNT 304 K/mm3 (130-400); RED BLOOD COUNT 5.12 M/mm3 (4.10-5.30); REDCELL DISTRIBUTION WIDTH-CV 12.5 % (11.5-14.5)
[2021-02-01 05:44] LABS: ALBUMIN 2.9 gm/dL (3.5-5.0); C-REACTIVE PROTEIN 0.21 mg/dL (0.00-0.50); CALCIUM 9.4 mg/dL (8.4-10.2); CREATININE, serum 1.2 mg/dL (0.57-1.11); MAGNESIUM 2.5 mg/dL (1.6-2.6); PHOSPHOROUS 4.4 mg/dL (2.3-4.7); POTASSIUM 3.8 mmol/L (3.5-4.5)
--- NOTE | 2021-02-01 06:00 | NUR ---
PATIENT RESTING IN BED AT THIS TIME, NOTED THAT SHE IS USING ACCESSORY MUSCLES FOR BREATHING ACTIVITY AT THIS TIME, AND HEART RATE IS INCREASED FROM PREVIOUS NOTED EARLIER IN SHIFT OF MID 50'S TO NOW IN THE LOW 70'S NO FURTHER TITRATION DONE AT THIS TIME
[2021-02-01 06:09] LABS: BAND 9 % (0-10); EOSINOPHIL 1 % (0-4); HYPOCHROMIA 1+; LYMPHOCYTE 5 % (20.0-51.0); NEUTROPHILS 78 % (42.0-75.2); PLATELET ESTIMATE NORMAL (NORMAL)
[2021-02-01 06:10] LABS: BURR CELLS 1+
--- NOTE | 2021-02-01 07:00 | NUR ---
RECEIVED REPORT FROM SKYLAR MANTILLA. PT RESTING IN BED ON VENT: AC/VC+, TV 550, PEEP 20, RR 24, FIO2 100%. FC PATENT AND DRAINING TO GRAVITY. COUNTER TOP MAKER IN PLACE. VSS. OGT AT 58CM WITH TF INFUSING AT 25ML/HR. SEE GTT FLOWSHEET.
--- NOTE | 2021-02-01 07:45 | NUR ---
PATIENT INTITIATED ON PRECEDEX AT 0650 DUE TO PATIENT ASYNCRONOUS BREATHING AGAINST THE VENT, PATIENT ABLE TO OPEN EYES AND NOD HER HEAD IN UNDERSTANDING BUT UNABLE TO MANAGE BREATHING PATTERN, BOLUS DOSE GIVEN ORDERED TITRATION OF PRECEDEX TO ATTAIN SYNCRONOUS BREATHING WITH VENT
--- NOTE | 2021-02-01 10:15 | NUR ---
DR MAY REQUESTS INSULIN TO PLACED ON HOLD AT THIS TIME. ONCE FSBS IS 200 GIVE THE 30 UNITS OF LEVEMIR THAT WAS ORDERED THIS MORNING AND DO Q4HR CHECKS. IF FSBS STAY BETWEEN 140-200, DO NOT RESTART INSULIN GTT AND GIVE THE NIGHT LEVEMIR ORDERED. IF IT DOES INCREASE ABOVE 200, CALL FOR FURTHER INSTRUCTIONS.
--- NOTE | 2021-02-01 10:38 | NUR ---
DR MAY ASSESSES PT AND STATES HE DECREASED THE PEEP TO 18.
[2021-02-02] VITALS (243 sets, daily range): BP systolic 71–95; BP diastolic 46–52; PULSE 31–67; TEMP 97–98; O2SAT 57–100
--- NOTE | 2021-02-02 05:14 | NUR ---
PT HYPOTENSIVE AFTER REPOSITIONING. 70'S/40'S. LEVOPHED GTT TO BE RESTARTED.
[2021-02-02 05:17] LABS: ARTERIAL BLD GAS O2 SATURATION 92.1 % (92-100); ARTERIAL BLOOD GAS HCO3 16.9 meq/L (22-26); ARTERIAL BLOOD GAS PCO2 36.5 mmHg (35-45); ARTERIAL BLOOD GAS PO2 67.8 mmHg (80-100); ARTERIAL BLOOD GAS pH 7.28 (7.35-7.45)
[2021-02-02 06:00] LABS: HEMATOCRIT 40.7 % (37.0-47.0); MEAN CELL VOLUME 88 fl (80.0-100.0); MEAN CORPUSCULAR HEMOGLOBIN 28 pg (27.0-31.0); MEAN CORPUSCULAR HGB CONC 32 g/dl (33.0-37.0); MEAN PLATELET VOLUME 10.7 fl (7.4-10.4); PLATELET COUNT 208 K/mm3 (130-400); RED BLOOD COUNT 4.64 M/mm3 (4.10-5.30); REDCELL DISTRIBUTION WIDTH-CV 12.8 % (11.5-14.5)
[2021-02-02 06:09] LABS: ALBUMIN 2.6 gm/dL (3.5-5.0); CALCIUM 9.6 mg/dL (8.4-10.2); CREATININE, serum 1.6 mg/dL (0.57-1.11); PHOSPHOROUS 6.1 mg/dL (2.3-4.7); POTASSIUM 4.6 mmol/L (3.5-4.5)
--- NOTE | 2021-02-02 06:10 | NUR ---
AFTER RESTARTING LEVOPHED GTT AT 0.1 MCG/KG/MIN PER ORDER. HEART RATE DROPPED TO 31 AT 0526. GOOD RADIAL PULSES. BP 174/94. SEDATION VACATION WAS IN PROCESS AT THIS TIME BUT ALL SEDATION/LEVODPHED TURNED OFF WHEN PT HEART RATE DECREASED. CAMILLE CHENG NOTIFIED CECILIA SHORE AND RECEIVED TORB FOR ATROPINE. PTS HEART RATE INCREASED TO 44 BY 0529 AND UP TO 70'S BY 0532 WITHOUT ATROPINE. PT EYES OPEN, DOES NOT FOLLOW COMMANDS O2 SAT 79% AT 0531 WITH CUFF LEAK AND WHEEZING. CUFF REINFLATED BY RT. SATS SLOWLY INCREASING. PT BELLY BREATHING. SEDATION RESTARTED. HR 83, RESP 24, SAT 88%, BP 107/81.
[2021-02-02 06:28] LABS: C-REACTIVE PROTEIN 0.38 mg/dL (0.00-0.50); MAGNESIUM 2.3 mg/dL (1.6-2.6)
[2021-02-02 06:54] LABS: BAND 10 % (0-10); HYPOCHROMIA 2+; LYMPHOCYTE 2 % (20.0-51.0); NEUTROPHILS 85 % (42.0-75.2); PLATELET ESTIMATE NORMAL (NORMAL)
--- NOTE | 2021-02-02 07:00 | NUR ---
RECEIVED REPORT FROM SKYLAR SAN. PT'S POX IS IN THE LOW 80s AND RT IS AT BEDSIDE ATTEMPTING TO IN LINE SUCTION AND GIVE BREATHING TX. SEE GTT FLOWSHEET. VENT SETTINGS: TV550, PEEP 20, FIO2 100%, RR 24. FC PATENT AND DRAINING TO GRAVITY. STOCK CHECKER IN PLACE.
--- NOTE | 2021-02-02 07:15 | NUR ---
CALLED DR MAY TO SPEAK TO HIM ABOUT PT'S HR IN THE 70s, POX 81%, AND SBP 80-90. PROVIDER REQUESTS FAMILY TO COME IN SOON TO HAVE A FAMILY TALK WITH HIM. PT'S NOTIFIED AND IS ON HIS WAY.
--- NOTE | 2021-02-02 07:54 | NUR ---
O2 SAT 82-85%. PEEP 20, FIO2 100%. RESTING WITH EYES CLOSED. PT THEN AWAKE, COUGHING, AND BUCKING VENT. O2 SAT DROPPED TO 60'S. INCREASED PROPOFOL, NOTIFIED TAMIKO, AND DR MAY. UPDATED FAMILY ON PT'S STATUS AND FAMILY STATES TO CONTINUE ALL CARES . DR MAY TO COME IN AND TALK WITH FAMILY. RT BAGGING PT, SAT INCREASED TO 90'S. PT RESTING WITH EYES CLOSED. BELLY BREATHING. FAMILY ON THEIR WAY TO FAMILY MEETING.
--- NOTE | 2021-02-02 08:25 | NUR ---
DR MAY AT BEDSIDE DISCUSSING PROGNOSIS AND POC WITH PT'S AND SON. RN NOTICIES BP 71/48, PROVIDER REQUESTS TO GIVE A DOSE OF VEC PUSH NOW AND TO RESTART LEVOPHED UNTIL DECISIONS ARE MADE. UPON GIVING VEC SLOWLY, [facility] THROUGH, RN AND DR MAY NOTICE HER HR DROP TO 40S THEN INTO THE 30s, FAMILY IS ASKED TO STEP OUT. DR MAY REQUESTS A DOSE OF ATROPINE TO BE GIVEN NOW. GIVEN BY RN. HR DOES IMPROVE TO 110-120s. DR MAY REQUESTS TO CLARIFY WITH OF CODE STATUS AT PT'S BEDSIDE. PT'S STATES TO MAKE PT A DNR AT THIS TIME. NOTED A LOT OF GUGGLING SOUNDS COMING FROM PT'S MOUTH. DR MAY BELIEVES THE ETT HAS A SEVERE LEAK. ANESTHESIA CALLED AND RT CALLED TO BEDSIDE FOR PREP FOR TUBE EXCHANGE. EXPLAINED TO PT'S THAT PT'S HR MAY DROP AGAIN D/T HER OXYGEN NOW BEING IN THE LOW 80s AND DROPPING AND IF HE WOULD LIKE MEDS TO BE GIVEN AGAIN TO BRING HER HR BACK UP, PT'S SAID NO AT 0849. PT'S SBP NOTICIED IN THE 60s AGAIN AND DR MAY STATES OK TO INCREASE LVEPHOED TO MAX OF 1MCG/KG/MIN AT THIS TIME. FAINT PULSE NOTED AND IRREGULAR RYTHYM NOTED ON SENIOR JAVA WEB APPLICATION DEVELOPER. DISCUSSED WITH PT'S AT BEDSIDE IF HE WOULD LIKE FOR US TO CONTINUE AND ADD MORE MEDICATIONS, HE SAYS NO TO JUST STOP EVERYTHING, THIS IS AT 0858. PT DISCONNECTED FROM AMBU BAG AND LEVOPHED. SEDATION REMAINS ON TO HELP EASE THE PT'S PAIN DURING THIS PROCESS. PT'S REMAINS AT BEDSIDE. TOD VERIFIED [facility] SKYLAR KAUR AND SUREKHA RN AT 0907. DR CEBALLOS AND DR MAY MADE AWARE. NIGHTMAN NOTIFIED. DISCUSSED WITH FAMILY ABOUT HOMES.
--- NOTE | 2021-02-02 09:27 | NUR ---
MIN notified of patient , referral number [id number]. May release body when home is decided.
--- NOTE | 2021-02-02 10:03 | NUR ---
Family has chosen [facility], this RN notified them.
--- NOTE | 2021-02-02 10:58 | NUR ---
4 RINGS SENT WITH PT'S AND ALL OTHER BELONGINGS FROM CLOSET SENT WITH PT'S BROTHER TRINI. ALL LINES DCd. PT LEFT WITH [facility] AT THIS TIME. RACHEL LEFT ON PT'S LEFT ANKLE PER FAMILY'S REQUEST.
== END 2021-02-02 10:58 | disposition expired | DRG 208 ==
LOC: COL.ER 13:04 → ICU 15:19 → MEDICAL 15:19 → ICU 01-25 17:28 → MEDICAL 01-27 19:15 → ICU 01-30 10:25 → MEDICAL 01-30 10:25 → ICU 01-30 10:26
PROVIDERS: Internal Medicine Pulmonary Disease; Internal Medicine Sleep Medicine; Nurse Practitioner; Student in an Organized Health Care Education/Training Program; ADMIT Internal Medicine
PROC: XW033E5 Introduction of Remdesivir Anti-infective into Peripheral Vein, Percutaneous Approach, New Technology Group 5 (ICD-10-PCS; 2021-01-23)
PROC: 5A09457 Assistance with Respiratory Ventilation, 24-96 Consecutive Hours, Continuous Positive Airway Pressure (ICD-10-PCS; 2021-01-25)
PROC: 02HV33Z Insertion of Infusion Device into Superior Vena Cava, Percutaneous Approach (ICD-10-PCS; 2021-01-29)
PROC: 5A1935Z Respiratory Ventilation, Less than 24 Consecutive Hours (ICD-10-PCS; principal; 2021-01-30)
PROC: 0BH17EZ Insertion of Endotracheal Airway into Trachea, Via Natural or Artificial Opening (ICD-10-PCS; 2021-01-30)
DX: U07.1 COVID-19 (principal); J96.01 Acute respiratory failure with hypoxia; J12.82 Pneumonia due to coronavirus disease 2019; E87.1 Hypo-osmolality and hyponatremia; N17.9 Acute kidney failure, unspecified; E87.2 Acidosis; Z68.43 Body mass index [BMI] 50.0-59.9, adult; E11.9 Type 2 diabetes mellitus without complications; Z73.0 Burn-out; Z79.82 Long term (current) use of aspirin; E66.9 Obesity, unspecified; Z66 Do not resuscitate
CPT/HCPCS: 99223-AI; 99233-AI; C1751; J0330; J0456; J0692; J0696; J1100; J1644; J1815; J1940; J2001; J2060; J2250; J2704; J3010; J3475; J7030; J7050; J7060; Q0249; Q9967